=== PATIENT | male | born 1995 | race Caucasian/White ===

== ENCOUNTER 2022-06-15 15:54 | Outpatient (CLI) | payer OTHER | END 2022-06-15 15:55 | disposition home or self-care (01) | LOC: LAB 15:54 | DX: Z03.818 Encounter for observation for suspected exposure to other biological agents ruled out (principal) ==

== ENCOUNTER 2022-06-20 12:46 | Emergency (ER) | payer OTHER ==
[~2022-06-20] VITALS: Ht 167.6 cm; Wt 88.5 kg
== END 2022-06-20 15:36 | disposition home or self-care (01) ==
LOC: ER 12:46
DX: B02.9 Zoster without complications (principal); Z88.6 Allergy status to analgesic agent